=== PATIENT | male | born 1965 | race Caucasian/White ===

== ENCOUNTER → 2020-09-08 | Day surgery (SDC) | payer OTHER ==
[~2020-09-08] MED LIST: METFORMIN HCL500 MG PO; PERCOCET 5-3251 EACH PO; TRULICITY0.75 MG/0. SC; VENTOLIN HFA IN18 GM INH; ZESTRIL40 MG PO
[2020-09-08 07:03] LABS: HGB 14.9 g/dl (13.2-18.0); MCH 29.5 pg (25.0-31.0); MCHC 33.1 g/dL (32.0-36.0); MCV 89.1 fL (78.0-100.0); RBC 5.05 M/uL (4.70-6.00); RDW 12.4 % (11.5-14.0)
[2020-09-08 07:29] LABS: ALBUMIN 3.5 g/dL (3.4-5.0); BILIRUBIN - TOTAL 0.9 mg/dL (0.2-1.0); BUN/CREAT RATIO (CALC) 19.8 RATIO; CREATININE 1.06 mg/dL (0.67-1.17); POTASSIUM 4.1 mmol/L (3.5-5.1); TOTAL PROTEIN 6.5 g/dL (6.4-8.2)
== END | disposition home or self-care (01) ==
LOC: FAS 06:00
PROVIDERS: Orthopaedic Surgery
DX: S43.432A Superior glenoid labrum lesion of left shoulder, initial encounter (principal); M75.42 Impingement syndrome of left shoulder; M19.012 Primary osteoarthritis, left shoulder; M75.102 Unspecified rotator cuff tear or rupture of left shoulder, not specified as traumatic; M25.812 Other specified joint disorders, left shoulder; X58.XXXA Exposure to other specified factors, initial encounter; Z98.52 Vasectomy status; Z86.16 Personal history of COVID-19
CPT/HCPCS: 36415; 71045; 80053; 93005; J0171; J0690; J2250; J2704; J2795; J3010; J7120